=== PATIENT | female | born 1990 | race Caucasian/White ===

== ENCOUNTER → 2016-11-20 | Day surgery (SDC) | payer OTHER ==
[~2016-11-20] MED LIST: CELEXA20 MG PO; TEMAZEPAM7.5 MG PO
--- NOTE | ~2016-11-20 | OR ---
Unit #: [id number] #: [id number] Patient: SO MACEDO [id number] [address] [place], [place] [address] [id number] O MR#: [id number] NAME: SO MACEDO ROOM: Date of Procedure: 11/20/2016 Admission Date: 11/20/2016 Surgeon: Izaiah Haynes M.D. : 1990 Attending Physician: Izaiah Haynes M.D. Primary Care Physician: Jonna Castaneda OPERATIVE REPORT PREOPERATIVE DIAGNOSES Herniated nucleus pulposus, radiculopathy, and back pain. POSTOPERATIVE DIAGNOSES Herniated nucleus pulposus, radiculopathy, and back pain. PROCEDURE PERFORMED Lumbar epidural steroid injection with intravenous sedation and fluoroscopic guidance for needle localization. INDICATIONS FOR PROCEDURE The patient is a 25-year-old female with back and greater than equal right lower extremity pain. She has had back pain for multiple years. More recently, she has developed leg pain. Both pains were worsened significantly recently. Workup was demonstrated new right-sided disk herniation with a free fragment at the L5 level. She failed to settle with conservative treatment including extensive rehab or medications. Oral steroids were helpful, though she did not maintain improvement. Plan, therefore based on history, pathology, symptomatology, and examination, is trial of epidural steroids. Risks and benefits of all which have been reviewed. DESCRIPTION OF PROCEDURE The patient was placed in a seated position. Standard monitors were applied. 2 mg of Versed were given for sedation and anxiolysis, which were adequate. Vital signs remained stable. Sterile prep and drape then of the lumbar area was performed. The skin at the L5 level was localized with 1% lidocaine. An 18-gauge Yotead needle was then advanced via loss of resistance technique and fluoroscopic guidance in toward the epidural space. The patient did not complain of any pain or paresthesia during needle advancement. After confirming proper positioning with fluoroscopy and radiographic contrast, 80 mg of Depo-Medrol and 4 mL of 0.125% bupivacaine were deposited. The patient tolerated the procedure otherwise well and was discharged to the recovery room in stable condition. Dictated by... Izaiah Haynes M.D. P/juanjo Unit #: [id number] #: [id number] Patient: SO MACEDO TD: 11/20/2016 23:29 JOB #: [id number] OPERATIVE REPORT Page 1 of 1 X Izaiah Haynes MD X PROCEDURE OPERATIVE NOTE
== END | disposition home or self-care (01) ==
LOC: CCSC 08:16
DX: M51.17 Intervertebral disc disorders with radiculopathy, lumbosacral region (principal); K21.9 Gastro-esophageal reflux disease without esophagitis
CPT/HCPCS: J1040; J2250

== ENCOUNTER → 2016-12-11 | Day surgery (SDC) | payer OTHER ==
--- NOTE | ~2016-12-11 | OR ---
Unit #: [id number] #: [id number] Patient: SO MACEDO [id number] [address] [place], [place] [address] [id number] O MR#: [id number] NAME: SO MACEDO ROOM: Date of Procedure: 12/11/2016 Admission Date: 12/11/2016 Surgeon: Izaiah Haynes M.D. : 1990 Attending Physician: Izaiah Haynes M.D. Primary Care Physician: Jonna Castaneda OPERATIVE REPORT JOB NOTE: CC: [facility] PREOPERATIVE DIAGNOSES Herniated nucleus pulposus, back pain, radiculopathy. POSTOPERATIVE DIAGNOSES Herniated nucleus pulposus, back pain, radiculopathy. PROCEDURE PERFORMED Lumbar epidural steroid injection with fluoroscopic guidance for needle localization. INDICATIONS FOR PROCEDURE The patient is a 26-year-old female, who had worsening back and right lower extremity pain, which is increased over time and not settle with extensive conservative measures. Workup demonstrated a right-sided L5-S1 disk herniation with a free fragment that showed some worsening pathology as compared to 2013 MRI. Decision was made to give the patient a trial of epidural steroids. First was done 3 weeks ago, which resulted in resolution of the leg pain and overall at least 50% settling of the back pain. Based on her good overall initial response, we are going to proceed with a second injection today. DESCRIPTION OF PROCEDURE The patient was placed in a seated position. Standard monitors were applied. Sterile prep and drape of the lumbar area was performed. The skin then at the L5-S1 level was localized with 1% lidocaine. An 18-gauge Animocatead needle was then advanced via loss of resistance technique and fluoroscopic guidance in toward the epidural space. The patient did not complain of pain or paresthesia. After confirming proper positioning with fluoroscopy and radiographic contrast, a dose of 80 mg of Depo-Medrol and 2 mL of preservative-free normal saline were deposited. The patient tolerated the procedure otherwise well and was discharged to the recovery room in stable condition. Dictated by... Izaiah Haynes M.D. LHP/modl Unit #: [id number] #: [id number] Patient: SO MACEDO A TD: 12/11/2016 23:38 JOB #: [id number] OPERATIVE REPORT Page 1 of 1 X Izaiah Haynes MD X PROCEDURE OPERATIVE NOTE
== END | disposition home or self-care (01) ==
LOC: CCSC 06:56
DX: M51.17 Intervertebral disc disorders with radiculopathy, lumbosacral region (principal); K21.9 Gastro-esophageal reflux disease without esophagitis; F32.9 Major depressive disorder, single episode, unspecified; F41.9 Anxiety disorder, unspecified; Z79.899 Other long term (current) drug therapy
CPT/HCPCS: J1040; J2250

== ENCOUNTER → 2017-02-11 | Outpatient (CLI) | payer OTHER ==
--- NOTE | ~2017-02-11 | US17 ---
[facility] A Service of [facility] RADIOLOGY TEXT RESULTS PATIENT: SO MIDDLETON LOCATION: [facility] : [birth year] UNIT #: [id number] AGE: [address]: REE GARDINER SEX: F ORDER DR: [id number] [facility] [address]. [place], [place] [address] [id number] O MR#: [id number] Acc #: [id number] NAME: SO MIDDLETON : 1990 SEX: F STUDY DATE/TIME: 02/11/2017 10:34 UNIT: [facility] ROOM: STUDY DESCRIPTION: US Breast Bilateral Attending Physician: Ree Gardiner Referring Physician: Carol Jackson M.D. Ordering Physician: Physician Non-Staff Primary Care Physician: Ree Gardiner MEDICAL IMAGING REPORT This report is preliminary unless electronic signature is present EXAM Bilateral diagnostic breast ultrasound. DATE 02/11/2017 HISTORY 26-year-old female with complaints of palpable abnormality and pain in each breast for one month, right greater than left. Intrauterine device in place with last menstrual period approximately 3 years ago. COMPARISON None FINDINGS Targeted sonographic imaging was obtained of each breast. At the site of patient's palpable complaint in the 5 o'clock right breast periareolar region, normal heterogeneously dense fibroglandular tissue is seen. Sample images were stored of the right breast at the 12 o'clock, 3 o'clock, 6 o'clock, and 9 o'clock axis and the subareolar axis, due to patient's diffuse right breast pain. Heterogeneously dense but normal-appearing fibroglandular tissue is seen without cystic or solid abnormality, architectural distortion, or microcalcification. Sample images were obtained of left breast at the 12 o'clock, 3 o'clock, 6 o'clock, and 9 o'clock axis due to patient's complaint of left breast pain (no documented palpable abnormality). Heterogeneously dense fibroglandular tissue is demonstrated but no cystic or solid lesion, architectural distortion, or microcalcification is seen. IMPRESSION BIRADS 1. Negative bilateral diagnostic mammogram. No sonographic [facility] A Service of [facility] RADIOLOGY TEXT RESULTS PATIENT: OS MIDDLETON LOCATION: [facility] : [birth year] UNIT #: [id number] AGE: [address]: REE GARDINER SEX: F ORDER DR: abnormality to explain the patient's breast pain and palpable abnormality in the right breast. Any further management of the patient's complaint should be based on clinical assessment. Patient is advised to begin routine annual screening mammogram at the age of 40, sooner if deemed appropriate based upon physical examination findings and family history. The findings and recommendations were discussed in detail with the patient today in the radiology department. Patients over the age of 40 are entered into a reminder system with target due date for the next mammogram. A result letter will also be sent to the patient. BIRADS: 1 Negative Dictated by... Crista Smyth M.D. THIS IS AN ELECTRONICALLY VERIFIED REPORT Crista Smyth M.D. at 02/12/2017 8:31 AM HANK/monica TD: 02/11/2017 12:48 JOB #: [id number] MEDICAL IMAGING REPORT Page 1 of 1 COPY
== END | disposition home or self-care (01) ==
LOC: CWCC 09:55
DX: N64.4 Mastodynia (principal)
CPT/HCPCS: 76641